=== PATIENT | male | born 1980 | race Caucasian/White ===

== ENCOUNTER 2020-01-16 11:37 | Emergency (ER) | payer SELFPAY ==
[~2020-01-16] VITALS: Ht 170.2 cm; Wt 76.2 kg
[2020-01-16 11:52] VITALS: BP 133/90; Ht 170.2 cm; Wt 76.2 kg
== END 2020-01-16 13:31 | disposition home or self-care (01) ==
LOC: ED 11:37
DX: N48.1 Balanitis (principal)